=== PATIENT | female | born 1950 | race Hispanic/Latino ===

== ENCOUNTER 2019-08-07 05:54 | Inpatient (IN) | payer OTHER ==
[2019-08-04 15:01] LABS: BASOPHILS % (AUTO) 0.6 % (0.0-5.0); EOSINOPHILS % (AUTO) 4.4 % (0.0-8.0); HEMATOCRIT 37.6 % (36-48); LYMPHOCYTES % (AUTO) 26.7 % (21.0-51.0); MEAN CORPUSCULAR HEMOGLOBIN 30.1 pg (27.0-33.0); MEAN CORPUSCULAR HGB CONC 33.6 g/dL (32.0-36.0); MEAN CORPUSCULAR VOLUME 89.4 fL (79-99); MONOCYTES % (AUTO) 4.9 % (3.0-13.0); NEUTROPHILS % (AUTO) 63.4 % (40.0-77.0); PLATELET COUNT (AUTO) 234 K/uL (130-400); RED CELL DISTRIBUTION WIDTH 13.9 % (11.0-15.5); WHITE BLOOD COUNT (AUTO) 7.9 K/uL (4.8-10.8)
[2019-08-04 15:03] LABS: APPEARANCE,URINE Cloudy (CLEAR); BILIRUBIN,URINE Negative (NEGATIVE); COLOR,URINE Yellow (YELLOW); GLUCOSE, URINE (UA) TRACE mg/dL (NEGATIVE); KETONES,URINE Negative (NEGATIVE); LEUKOCYTE ESTERASE ,URINE Negative (NEGATIVE); NITRATE,URINE Positive (NEGATIVE); OCCULT BLOOD,URINE Negative (NEGATIVE); PROTEIN,URINE POS 1+ mg/dL (NEGATIVE)
[2019-08-04 15:06] VITALS: BP 160/70
[2019-08-04 15:20] LABS: INR 0.95 (0.85-1.15); PARTIAL THROMBOPLASTIN TIME 29.6 SEC (26.3-35.5)
[2019-08-04 15:55] LABS: BACTERIA,URINE Many /HPF (None Seen); MUCUS,URINE Moderate LPF (None Seen)
[2019-08-04 16:49] LABS: CREATININE 0.8 mg/dL (0.5-1.5); POTASSIUM 4.2 mmol/L (3.5-5.1)
--- NOTE | 2019-08-04 16:59 | NUR ---
UA INFORMED JUDIT MURCIA OF ABNORMAL UA. NO ORDERS RECEIVED. PROCEED WITH PLANNED PROCEDURE.
[2019-08-07] VITALS (13 sets, daily range): BP systolic 129–156; BP diastolic 52–77
[~2019-08-07] VITALS: Ht 152.4 cm; Wt 80.4 kg
[~2019-08-07 05:54] MED LIST: ASPI-555 PO; DULA0.75 SQ; INSLAN SQ; LEVO75TA10 PO; LOSA100T58 PO; MIRA25TA PO; PARO10TA71 PO; ROSU40TA21 PO; SODIUM CHLORIDE 0.9% 500ML 500 ML IV SCH; TRAM50TA4 PO
--- NOTE | 2019-08-07 06:45 | NUR ---
PATIENT ARRIVED PATIENT ARRIVED TO DAY PATIENT ACCOMPANIED BY BROTHER (MACARIO). PT AAOX3, RESPIRATIONS UNLABORED, VITAL SIGNS STABLE. DENIES ANY PAIN AT THIS TIME. PROCEDURE VERIFIED AND CONFIRMED WITH PATIENT. HOSPITAL ROUTINE EXPLAINED TO PATIENT AND PATIENT'S BOTHER, BOTH VERBALIZED UNDERSTANDING. ALL QUESTIONS/CONCERNS ADDRESSED. SIDERAILS UPX2, BED IN LOWEST POSITION, CALL RIDDLE IN REACH.
[2019-08-07] MEDS ORDERED: BIVALIRUDIN 250 MG/VIAL IV ONE (07:36)
[2019-08-07] MEDS ORDERED: IOHEXOL-350 50ML VIAL IV ONE (07:36)
[2019-08-07] MEDS ORDERED: IOHEXOL 350 MG/ML 100ML INFUS..BTL IV ONE (07:36)
[2019-08-07] MEDS ORDERED: LIDOCAINE HCL 2% 20ML ONE (07:37)
[2019-08-07] MEDS ORDERED: FENTANYL CITRATE PF 50 MCG/1 ML 2ML VIAL ONE (07:37)
[2019-08-07] MEDS ORDERED: MIDAZOLAM HCL 1 MG/ML 2ML VIAL ONE (07:37)
[2019-08-07] MEDS ORDERED: SODIUM CHLORIDE 0.9% 1000ML 1,000 ML IV ONE (07:37)
[2019-08-07] MEDS ORDERED: NITROGLYCERIN 5 MG/ML 10 ML VIAL IV ONE (07:38)
--- NOTE | 2019-08-07 07:40 | NUR ---
PATIENT TRANSFERRED PATIENT TAKEN TO PULPER TENDER VIA BED BY WERNER YANEZ AND WERNER TONG. PATIENT'S BROTHER INSTRUCTED TO WAIT IN ROOM SO THAT HE CAN SPEAK WITH DR SHELTON AFTER PROCEDURE IS COMPLETE.
[2019-08-07] MEDS ORDERED: LABETALOL 20 MG/4 ML DISP.SYRIN IV ONE (08:32)
[2019-08-07] MEDS ORDERED: LABETALOL HCL 5 MG/ML 20ML VIAL IV ONE (08:50)
[2019-08-07] MEDS ORDERED: SODIUM CHLORIDE 0.9% 1000ML 1,000 ML IV SCH (08:56)
[2019-08-07] MEDS ORDERED: GLUCAGON 1MG KIT 1 MG ML IM PRN (09:00)
[2019-08-07] MEDS: LOSARTAN 50 MG TABLET PO SCH (09:00)
[2019-08-07] MEDS: METOPROLOL TARTRATE 25 MG TAB PO SCH ×2 (09:00→21:46)
[2019-08-07] MEDS: ASPIRIN 81MG TAB.CHEW PO SCH (09:00)
[2019-08-07] MEDS ORDERED: DEXTROSE 50%-WATER 50 ML DISP.SYRIN IV PRN (09:00)
--- NOTE | 2019-08-07 09:20 | NUR ---
PATIENT RETURNED PATIENT BROUGHT BACK FROM ASSISTANT CONSTRUCTION SUPERINTENDENT VIA BED BY WERNER YANEZ AND WERNER MEZA. PATIENT AAOX3, RESPIRATIONS UNLABORED, VITAL SIGNS STABLE. PATIENT DENIES ANY PAIN AT THIS TIME. PATIENT INSTRUCTED TO LAY FLAT FOR THE NEXT 2 HOURS AND NOT TO MOVE HER RIGHT LEG, PATIENT VERBALIZED UNDERSTANDING. DRESSING TO RIGHT GROIN IS DRY AND INTACT AND AREA IS SOFT AND NONTENDER. NO BLEEDING OR DRAINING FROM DRESSING.
--- NOTE | 2019-08-07 09:30 | NUR ---
LOSARTAN/ASPIRIN LOSARTAN AND ASPIRIN NOT GIVEN BY NURSE BECAUSE PATIENT TOOK THOSE MEDS THIS MORNING AT HOME BEFORE ARRIVING TO DAY PATIENT.
[2019-08-07] MEDS ORDERED: HYDRALAZINE HCL 20 MG/ML VIAL IV PRN (11:15)
[2019-08-07] MEDS: INSULIN HUMULIN R 100 UNIT/ML 3ML SQ SCH ×3 (11:36→21:00)
[2019-08-07] MEDS ORDERED: ACETAMINOPHEN 325 MG TAB ONE (11:42)
[2019-08-07] MEDS ORDERED: ACETAMINOPHEN 325 MG TAB PO SCH (11:45)
[2019-08-07] MEDS ORDERED: CEFAZOLIN SODIUM 1 GM VIAL IVP PRN (12:45)
--- NOTE | 2019-08-07 14:30 | NUR ---
HANDOFF COMMUNICATION HANDOFF REPORT GIVEN USING SBAR TO FUAD ONEILL RN USING SBAR
[2019-08-07] MEDS: NITROGLYCERIN 1GM/1 INCH PACKET TD SCH ×3 (14:33→21:49)
--- NOTE | 2019-08-07 17:39 | NUR ---
REPORT GIVEN TO TODD JOHN RN AND PT. MEDICATION METOPROLOL TABLET GIVEN TO RN. PT TSF TO RM 226 VIA WHEELCHAIR NO COMPLICATION UPON TSF. DRESSING DRY AND INTACT AND PULSES PRESENT TO BILAT LOWER EXT.
--- NOTE | 2019-08-07 17:42 | NUR ---
ARRIVAL TO FLOOR VIA WC FROM DAYPATIENT. PT IS AAOX3 DENIES CP DENIES SOB DENIES NV NO COMPLAINTS. RIGHT GROIN SOFT, DSTAT IN PLACE. FAMILY IS AT BEDSIDE, CALL LIGHT WITHIN REACH.
[2019-08-07] MEDS: TRAMADOL HCL 50 MG TABLET PO SCH (21:00)
[2019-08-07] MEDS ORDERED: METOPROLOL TARTRATE 25 MG TAB ONE (21:43)
[2019-08-07] MEDS ORDERED: NITROGLYCERIN 1GM/1 INCH PACKET TD ONE (21:44)
[2019-08-07] MEDS: ATORVASTATIN CALCIUM 40 MG TABLET PO SCH (21:46)
[2019-08-07 22:09] LABS: HEMATOCRIT 36.4 % (36-48); MEAN CORPUSCULAR HEMOGLOBIN 30.6 pg (27.0-33.0); MEAN CORPUSCULAR HGB CONC 34.4 g/dL (32.0-36.0); PLATELET COUNT (AUTO) 224 K/uL (130-400); RED BLOOD CELL COUNT(AUTO) 4.09 MIL/uL (4.00-5.50); RED CELL DISTRIBUTION WIDTH 13.8 % (11.0-15.5); WHITE BLOOD COUNT (AUTO) 11.7 K/uL (4.8-10.8)
[2019-08-07 22:19] LABS: INR 0.99 (0.85-1.15); PROTHROMBIN TIME 10.4 SEC (9.6-11.6)
[2019-08-07 22:23] LABS: CREATININE 0.8 mg/dL (0.5-1.5); POTASSIUM 3.7 mmol/L (3.5-5.1)
[2019-08-07 22:30] LABS: B-TYPE NATRIURETIC PEPTIDE 113 pg/mL (0-100)
[2019-08-07 22:31] LABS: HEMOGLOBIN A1C 9.1 % (4.0-6.0)
[2019-08-08] VITALS (15 sets, daily range): BP systolic 106–194; BP diastolic 46–81
[2019-08-08] MEDS ORDERED: NITROGLYCERIN 1GM/1 INCH PACKET TD ONE (03:38)
[2019-08-08] MEDS: NITROGLYCERIN 1GM/1 INCH PACKET TD SCH ×2 (03:44→11:07)
[2019-08-08] MEDS: LEVOTHYROXINE 75 MCG TABLET PO SCH (05:48)
[2019-08-08] MEDS: INSULIN HUMULIN R 100 UNIT/ML 3ML SQ SCH ×2 (06:56→11:08)
--- NOTE | 2019-08-08 08:00 | NUR ---
ASSESSMENT PT IS AAOX4 DENIES CP DENIES SOB DENIES NV. NO COMPLAINTS AT THIS TIME. NPO STATUS FOR CABG TODAY. CONSENT PENDING TO BE SIGNED DR GRIGGS PENDING TO SEE PATIENT.
[2019-08-08] MEDS: PAROXETINE HCL 20 MG TABLET PO SCH (08:02)
[2019-08-08] MEDS: TRAMADOL HCL 50 MG TABLET PO SCH (08:02)
[2019-08-08] MEDS: LOSARTAN 50 MG TABLET PO SCH (08:02)
[2019-08-08] MEDS: ASPIRIN 81MG TAB.CHEW PO SCH (08:02)
[2019-08-08] MEDS: MIRABEGRON 25 MG PO SCH (08:02)
[2019-08-08] MEDS: METOPROLOL TARTRATE 25 MG TAB PO SCH (08:05)
[2019-08-08] MEDS ORDERED: EPINEPHRINE 1 MG/ML 30ML VIAL IJ ONE (08:41)
[2019-08-08] MEDS ORDERED: NITROGLYCERIN 50 MG/D5% WATER 1 BOT ONE (08:41)
--- NOTE | 2019-08-08 10:00 | NUR ---
2D ECHO AT BEDSIDE
[2019-08-08] MEDS ORDERED: EPINEPHRINE 1 MG/ML AMPULE ONE (11:08)
[2019-08-08] MEDS ORDERED: PROTAMINE SULFATE 10 MG/ML 25ML VIAL IV ONE (11:08)
[2019-08-08] MEDS ORDERED: HEPARIN SODIUM 1000UNIT/ML 10ML VIAL ONE (11:08)
[2019-08-08] MEDS ORDERED: LIDOCAINE PF 2% 5ML ABBOJECT ONE (11:08)
[2019-08-08] MEDS ORDERED: AMINOCAPROIC ACID 250 MG/ML 20 ML VIAL IV ONE (11:08)
[2019-08-08] MEDS ORDERED: ESMOLOL HCL 10 MG/ML 10 ML VIAL ONE (11:08)
[2019-08-08] MEDS ORDERED: SODIUM BICARB 50MEQ 50ML VIAL ONE (11:08)
[2019-08-08] MEDS ORDERED: NOREPINEPHRINE BITARTRATE 1 MG/1 ML ML IV ONE (11:08)
[2019-08-08] MEDS ORDERED: PROPOFOL 10 MG/ML 20ML VIAL IV ONE (11:09)
[2019-08-08] MEDS ORDERED: MIDAZOLAM HCL 1 MG/ML 2ML VIAL ONE (11:09)
[2019-08-08] MEDS ORDERED: ROCURONIUM 10MG/1ML SYR 10 MG/ML ML ONE (11:09)
[2019-08-08] MEDS ORDERED: FENTANYL CITRATE PF 50 MCG/1 ML 20ML VIAL IJ ONE (11:09)
--- NOTE | 2019-08-08 12:00 | NUR ---
DR FOSTER ROUNDED SAW PATIENT. PENDING DR GRIGGS TO SEE PATIENT.
--- NOTE | 2019-08-08 12:03 | NUR ---
DC PLAN VISITED WITH PATIENT. PATIENT LIVES WITH SPOUSE. INDEPENDENT ABLE TO PERFORM ADL'S. PATIENT HAS NO DME'S. PROVIDER 3 HRS. FEELS SAFE TO RETURN HOME. Addendum: 08/08/19 at 1203 by LANA RUSSELL RN CM Amended: Links added.
[2019-08-08] MEDS ORDERED: BACITRACIN 50,000 UNIT VIAL ONE (13:42)
[2019-08-08] MEDS ORDERED: PAPAVERINE HCL 30 MG/ML 2ML VIAL ONE (13:42)
--- NOTE | 2019-08-08 14:29 | NUR ---
OR STAFF PICKED UP PATIENT MADE AWARE OF CONSENT PENDING TO BE SIGNED, DR GRIGGS TO SEE PATIENT DOWNSTAIRS IN OR HOLDING. TELE PACK REMOVED. ALL BELONGINGS TAKEN OUT OF ROOM AND GIVEN TO FAMILY.
[2019-08-08] MEDS ORDERED: CEFAZOLIN SODIUM 1 GM VIAL ONE (14:47)
[2019-08-08] MEDS ORDERED: SODIUM CHLORIDE 0.9% 1000ML 1,000 ML IV ONE (15:14)
[2019-08-08 15:45] LABS: ABG BASE EXCESS 0.4 mmol/L (-2.0-3.0); ABG OXYGEN SATURATION 98.8 % (95.0-99.0); ABG PCO2 27 mmHg (32-45)
[2019-08-08] MEDS ORDERED: SODIUM CHLORIDE 0.9% 500ML 500 ML IV SCH (16:33)
[2019-08-08] MEDS ORDERED: NOREPINEPHRINE 4MG/NS 250ML 250 ML IV PRN (16:45)
[2019-08-08] MEDS ORDERED: ALBUMIN (HUMAN) 5% 250 ML IV PRN (16:45)
[2019-08-08] MEDS ORDERED: CALCIUM GLUCONATE 1 GM in SODIUM CHLORIDE 0.9% 50 ML IV PRN (16:45)
[2019-08-08] MEDS ORDERED: MORPHINE SULFATE 2 MG/ML 1ML SYG IV PRN (16:45)
[2019-08-08] MEDS ORDERED: SODIUM CHLORIDE 0.9% 1000ML 1,000 ML IV SCH (16:45)
[2019-08-08] MEDS ORDERED: DEXTROSE 50%-WATER 50 ML DISP.SYRIN IV PRN (16:45)
[2019-08-08] MEDS ORDERED: GLUCAGON 1MG KIT 1 MG ML IM PRN (16:45)
[2019-08-08] MEDS ORDERED: AMINOCAPROIC ACID 15,000 MG in SODIUM CHLORIDE 0.9% 250 ML IV SCH (16:45)
[2019-08-08] MEDS ORDERED: NITROGLYCERIN 50 MG/D5% WATER 250 BOT IV SCH (16:45)
[2019-08-08] MEDS ORDERED: EPINEPHRINE 8 MG in DEXTROSE 5%-WATER 250 ML IV PRN (16:45)
[2019-08-08] MEDS ORDERED: ACETAMINOPHEN 325 MG TAB PO PRN ×2 (16:45)
[2019-08-08] MEDS ORDERED: SODIUM CHLORIDE 0.9% 10 ML VIAL IVP PRN (16:45)
[2019-08-08] MEDS ORDERED: MAGNESIUM 2GM PREMIX 50ML 50 ML IV PRN (16:45)
[2019-08-08] MEDS ORDERED: ONDANSETRON HCL 4 MG/2 ML VIAL IV PRN (16:45)
[2019-08-08] MEDS ORDERED: ACETAMINOPHEN 650 MG SUPPOSITORY RC PRN (16:45)
[2019-08-08] MEDS ORDERED: PROPOFOL 1000 MG/100 ML 100 ML IV PRN (16:45)
[2019-08-08] MEDS ORDERED: SODIUM CHLORIDE 0.9% 250 ML IV PRN (16:45)
[2019-08-08] MEDS ORDERED: INSULIN REGULAR, HUMAN 3ML 100 UNIT in SODIUM CHLORIDE 0.9% 99 ML IV SCH ×2 (16:45)
[2019-08-08] MEDS ORDERED: POTASSIUM PHOS 15 mMOL+NS250ML 250 ML IV PRN (16:45)
[2019-08-08] MEDS ORDERED: TRAMADOL HCL 50 MG TABLET PO PRN (16:45)
[2019-08-08 17:15] LABS: ABG BASE EXCESS -2.7 mmol/L (-2.0-3.0); ABG HCO3 20.9 mmol/L (21.0-28.0); ABG OXYGEN SATURATION 98.8 % (95.0-99.0); ABG PCO2 33 mmHg (32-45)
--- NOTE | 2019-08-08 17:38 | NUR ---
PT WAS ADMITTED TO ROOM 213 POST CABG X2. PT HAS BEEN CONNECTED TO VENTILATOR PRESCRIBED. SEE ASSESSMEMENT.
[2019-08-08 18:20] LABS: ABG HCO3 22.4 mmol/L (21.0-28.0); ABG OXYGEN SATURATION 98.2 % (95.0-99.0); ABG PCO2 33 mmHg (32-45)
--- NOTE | 2019-08-08 18:25 | NUR ---
PT WAS STARTED ON TRIDIL DRIP AT 10 MCG AFTER B/P INCREASED AND SUSTAINED GREATER THAN 180'S. LEVOPHED HAS BEEN OFF SINCE ADMISSION TO CVR POST CABG X 2.
--- NOTE | 2019-08-08 19:00 | NUR ---
REPORT GIVEN TO DUGLAS SAMUELS RN.
[2019-08-08 19:09] LABS: HEMATOCRIT 31.7 % (36-48); MEAN CORPUSCULAR HEMOGLOBIN 30.3 pg (27.0-33.0); MEAN CORPUSCULAR HGB CONC 34.2 g/dL (32.0-36.0); MEAN CORPUSCULAR VOLUME 88.8 fL (79-99); PLATELET COUNT (AUTO) 200 K/uL (130-400); RED BLOOD CELL COUNT(AUTO) 3.57 MIL/uL (4.00-5.50); WHITE BLOOD COUNT (AUTO) 19.4 K/uL (4.8-10.8)
[2019-08-08 19:24] LABS: ABG BASE EXCESS -1.1 mmol/L (-2.0-3.0); ABG HCO3 22.6 mmol/L (21.0-28.0); ABG PCO2 34 mmHg (32-45)
[2019-08-08] MEDS: MORPHINE SULFATE 4 MG/1ML SYG IV PRN ×2 (19:37→21:08)
[2019-08-08] MEDS: POTASSIUM CHLORIDE 20MEQ/100ML 100 ML IV PRN ×2 (19:38→20:34)
[2019-08-08 19:39] LABS: CREATININE 0.6 mg/dL (0.5-1.5); MAGNESIUM 1.6 mg/dL (1.80-2.40); PHOSPHORUS 2.6 mg/dL (2.5-4.9); POTASSIUM 3.6 mmol/L (3.5-5.1)
[2019-08-08] MEDS: SODIUM BICARB 50MEQ 50ML VIAL IV PRN (19:55)
[2019-08-08 19:56] LABS: INR 1.06 (0.85-1.15); PARTIAL THROMBOPLASTIN TIME 27.8 SEC (26.3-35.5); PROTHROMBIN TIME 11.1 SEC (9.6-11.6)
[2019-08-08] MEDS: FAMOTIDINE/PF 20 MG/2 ML VIAL IV SCH (20:24)
[2019-08-08] MEDS: ATORVASTATIN CALCIUM 40 MG TABLET PO SCH (20:27)
[2019-08-08 21:18] LABS: ABG HCO3 25.4 mmol/L (21.0-28.0); ABG OXYGEN SATURATION 97.5 % (95.0-99.0); ABG PCO2 40 mmHg (32-45)
[2019-08-08] MEDS: CEFAZOLIN SODIUM 1 GM VIAL IV SCH (21:31)
[2019-08-09] VITALS (28 sets, daily range): BP systolic 92–155; BP diastolic 38–75
[2019-08-09 02:11] LABS: ABG BASE EXCESS 0.8 mmol/L (-2.0-3.0); ABG HCO3 24.9 mmol/L (21.0-28.0); ABG OXYGEN SATURATION 97.3 % (95.0-99.0); ABG PCO2 38 mmHg (32-45)
[2019-08-09 03:06] LABS: ABG BASE EXCESS -1.3 mmol/L (-2.0-3.0); ABG HCO3 23.4 mmol/L (21.0-28.0); ABG OXYGEN SATURATION 97.4 % (95.0-99.0); ABG PCO2 39 mmHg (32-45)
[2019-08-09] MEDS: SODIUM BICARB 50MEQ 50ML VIAL IV PRN (03:10)
[2019-08-09 04:12] LABS: HEMATOCRIT 32.1 % (36-48); MEAN CORPUSCULAR HEMOGLOBIN 30.5 pg (27.0-33.0); MEAN CORPUSCULAR HGB CONC 34.1 g/dL (32.0-36.0); MEAN CORPUSCULAR VOLUME 89.4 fL (79-99); PLATELET COUNT (AUTO) 174 K/uL (130-400); RED BLOOD CELL COUNT(AUTO) 3.59 MIL/uL (4.00-5.50); RED CELL DISTRIBUTION WIDTH 14.2 % (11.0-15.5); WHITE BLOOD COUNT (AUTO) 13.6 K/uL (4.8-10.8)
[2019-08-09 04:24] LABS: INR 0.97 (0.85-1.15); PARTIAL THROMBOPLASTIN TIME 26.5 SEC (26.3-35.5); PROTHROMBIN TIME 10.2 SEC (9.6-11.6)
--- NOTE | 2019-08-09 04:25 | NUR ---
EXTUBATION PT TOLERATED WEANING WELL ABG WNL. PT WITH GOOD HAND RESIDENTIAL THERAPIST AND ABLE TO LIFT HEAD AND HOLD . PT WAS ABLE TO ACHIEVE NIF -44 AND VC 980. PT EXTUBATED AND PLACED ON 40% CAFM SHE WAS ALSO ENCOURAGED TO TAKE SLOW DEEP BREATHS.
[2019-08-09 04:26] LABS: CREATININE 0.7 mg/dL (0.5-1.5); MAGNESIUM 2.2 mg/dL (1.80-2.40); PHOSPHORUS 2.9 mg/dL (2.5-4.9); POTASSIUM 4.1 mmol/L (3.5-5.1)
[2019-08-09 05:29] LABS: ABG BASE EXCESS 1.6 mmol/L (-2.0-3.0); ABG OXYGEN SATURATION 94.6 % (95.0-99.0); ABG PCO2 45 mmHg (32-45)
[2019-08-09] MEDS: CEFAZOLIN SODIUM 1 GM VIAL IV SCH ×2 (05:32→15:23)
--- NOTE | 2019-08-09 06:10 | NUR ---
TRANSFER PT TRANSFERRED AT THIS TIME TO ROOM 218 VIA BED. NO ADVERSE REACTIONS NOTED PT SAFETY MAINTAINED. WILL CONTINUE TO MONITOR.
[2019-08-09] MEDS: LEVOTHYROXINE 75 MCG TABLET PO SCH (06:39)
[2019-08-09] MEDS: FAMOTIDINE/PF 20 MG/2 ML VIAL IV SCH (08:51)
[2019-08-09] MEDS: TRAMADOL HCL 50 MG TABLET PO PRN ×3 (08:52→21:05)
[2019-08-09] MEDS: PAROXETINE HCL 20 MG TABLET PO SCH (08:53)
[2019-08-09] MEDS: ASPIRIN 325MG EC TAB 325 MG TABLET.DR PO SCH (08:53)
[2019-08-09] MEDS: FUROSEMIDE 10 MG/ML 2ML VIAL IV SCH ×2 (08:55→20:49)
[2019-08-09] MEDS: MIRABEGRON 25 MG PO SCH (08:57)
--- NOTE | 2019-08-09 14:15 | NUR ---
PT WAS SAT UP TO CHAIR EARLIER AND TRIDIL DRIP HAS BEEN OFF FOR 6 HOURS. SBP HAS REMAINED STABLE.
[2019-08-09] MEDS: ATORVASTATIN CALCIUM 40 MG TABLET PO SCH (20:49)
[2019-08-09] MEDS: FAMOTIDINE 20MG TAB 20 MG TAB PO SCH (20:49)
--- NOTE | 2019-08-09 21:10 | NUR ---
STATUS PATIENT TRANSFERRED FROM CHAIR TO BED WITH ASSIST X2. TOLERATED ACTIVITY WELL. PATIENT MEDICATED FOR PAIN
[2019-08-09] MEDS ORDERED: AMIODARONE HCL 150 MG in DEXTROSE 5%-WATER 100 ML IV SCH (22:15)
[2019-08-09] MEDS ORDERED: AMIODARONE HCL 900 MG in DEXTROSE 5%-WATER 500 ML IV SCH (22:15)
[2019-08-09] MEDS ORDERED: NOREPINEPHRINE BITARTRATE 1 MG/1 ML ML IV ONE (22:17)
--- NOTE | 2019-08-09 22:30 | NUR ---
RHYTHM 8 PATIENT IN AFIB RVR. 2200 DR GRIGGS NOTIFIED ORDERS RECEIVED FOR AMIODARONE PROTOCOL. AMIODARONE PROTOCOL INITIATED. 2226 PATIENT CONVERTED TO SINUS RHYTHM. MAINTENANCE INFUSION RUNNING
[2019-08-10] VITALS (21 sets, daily range): BP systolic 90–131; BP diastolic 37–82
[2019-08-10 04:44] LABS: HEMATOCRIT 28.3 % (36-48); MEAN CORPUSCULAR HEMOGLOBIN 30.3 pg (27.0-33.0); MEAN CORPUSCULAR VOLUME 89.2 fL (79-99); PLATELET COUNT (AUTO) 172 K/uL (130-400); RED BLOOD CELL COUNT(AUTO) 3.17 MIL/uL (4.00-5.50); RED CELL DISTRIBUTION WIDTH 13.9 % (11.0-15.5); WHITE BLOOD COUNT (AUTO) 14.1 K/uL (4.8-10.8)
[2019-08-10 04:50] LABS: CREATININE 0.8 mg/dL (0.5-1.5); POTASSIUM 3.3 mmol/L (3.5-5.1)
[2019-08-10] MEDS: POTASSIUM CHLORIDE 20MEQ/100ML 100 ML IV PRN ×2 (05:27→08:31)
[2019-08-10] MEDS: LEVOTHYROXINE 75 MCG TABLET PO SCH (06:07)
[2019-08-10] MEDS: TRAMADOL HCL 50 MG TABLET PO PRN ×3 (06:12→18:40)
[2019-08-10] MEDS: MIRABEGRON 25 MG PO SCH (08:24)
[2019-08-10] MEDS: FUROSEMIDE 20 MG TABLET PO SCH ×2 (08:30→16:14)
[2019-08-10] MEDS: FAMOTIDINE 20MG TAB 20 MG TAB PO SCH ×2 (08:31→20:44)
[2019-08-10] MEDS: PAROXETINE HCL 20 MG TABLET PO SCH (08:31)
[2019-08-10] MEDS: ASPIRIN 325MG EC TAB 325 MG TABLET.DR PO SCH (08:31)
[2019-08-10] MEDS: METOPROLOL TARTRATE 25 MG TAB PO SCH ×2 (08:31→20:47)
[2019-08-10] MEDS: INSULIN HUMULIN R 100 UNIT/ML 3ML SQ SCH ×3 (11:30→21:00)
--- NOTE | 2019-08-10 16:45 | NUR ---
RECEIVED TRANSFER TO ROOM 226 VIA RECLINER. DENIES ANY C/O AT THIS TIME. CHEST TUBES IN PLACE TO SUCTION. AMIODARONE GTT INFUSING AT 0.5MG/MIN VIA IV PUMP. CALL LIGHT WITHIN REACH, VERBALIZED ABILITY TO USE. ROOM DOOR OPEN, VISIBLE FROM NURSE'S STATION.
[2019-08-10] MEDS: ATORVASTATIN CALCIUM 40 MG TABLET PO SCH (20:44)
[2019-08-10] MEDS: AMIODARONE HCL 200 MG TABLET PO SCH (20:44)
[2019-08-11 03:00] VITALS: BP 97/49
[2019-08-11 03:43] LABS: HEMATOCRIT 27.8 % (36-48); MEAN CORPUSCULAR HEMOGLOBIN 30.9 pg (27.0-33.0); MEAN CORPUSCULAR HGB CONC 34.2 g/dL (32.0-36.0); MEAN CORPUSCULAR VOLUME 90.2 fL (79-99); PLATELET COUNT (AUTO) 173 K/uL (130-400); RED BLOOD CELL COUNT(AUTO) 3.08 MIL/uL (4.00-5.50); RED CELL DISTRIBUTION WIDTH 13.9 % (11.0-15.5); WHITE BLOOD COUNT (AUTO) 13.1 K/uL (4.8-10.8)
[2019-08-11 04:02] LABS: CREATININE 0.9 mg/dL (0.5-1.5); POTASSIUM 4.1 mmol/L (3.5-5.1)
[2019-08-11 05:30] LABS: APPEARANCE,URINE Clear (CLEAR); BILIRUBIN,URINE Negative (NEGATIVE); COLOR,URINE Yellow (YELLOW); GLUCOSE, URINE (UA) Negative (NEGATIVE); KETONES,URINE 15 mg/dL (NEGATIVE); LEUKOCYTE ESTERASE ,URINE Trace (NEGATIVE); NITRATE,URINE Negative (NEGATIVE); OCCULT BLOOD,URINE Negative (NEGATIVE); PH,URINE 5.5 (5.0-8.0); PROTEIN,URINE POS 1+ mg/dL (NEGATIVE)
[2019-08-11 05:42] LABS: BACTERIA,URINE None Seen /HPF (None Seen); MUCUS,URINE Rare LPF (None Seen); RBC,URINE None Seen /HPF (0-1); SQUAMOUS EPITHELIAL CELL,UR Few /HPF (0-2); YEAST,URINE BUDDING Rare /HPF (None Seen)
[2019-08-11] MEDS: INSULIN HUMULIN R 100 UNIT/ML 3ML SQ SCH ×4 (06:36→21:52)
[2019-08-11] MEDS: LEVOTHYROXINE 75 MCG TABLET PO SCH (06:36)
[2019-08-11 07:00] VITALS: BP 107/58
[2019-08-11] MEDS: MIRABEGRON 25 MG PO SCH (09:00)
[2019-08-11] MEDS: AMIODARONE HCL 200 MG TABLET PO SCH ×2 (09:44→20:42)
[2019-08-11] MEDS: PAROXETINE HCL 20 MG TABLET PO SCH (09:44)
[2019-08-11] MEDS: FAMOTIDINE 20MG TAB 20 MG TAB PO SCH ×2 (09:44→20:42)
[2019-08-11] MEDS: ASPIRIN 325MG EC TAB 325 MG TABLET.DR PO SCH (09:44)
[2019-08-11] MEDS: FUROSEMIDE 20 MG TABLET PO SCH ×2 (09:47→17:16)
[2019-08-11] MEDS: METOPROLOL TARTRATE 25 MG TAB PO SCH ×2 (09:47→20:43)
[2019-08-11] MEDS: ENOXAPARIN SODIUM 30 MG/0.3 ML SQ SCH (09:47)
[2019-08-11 11:00] VITALS: BP 123/44
[2019-08-11] MEDS: TRAMADOL HCL 50 MG TABLET PO PRN (14:51)
[2019-08-11 16:00] VITALS: BP 120/54
[2019-08-11 20:00] VITALS: BP 119/45
[2019-08-11] MEDS: ATORVASTATIN CALCIUM 40 MG TABLET PO SCH (20:43)
[2019-08-11 23:18] VITALS: BP 96/45
[2019-08-12 03:37] VITALS: BP 114/48
[2019-08-12 03:57] LABS: MEAN CORPUSCULAR HEMOGLOBIN 30.5 pg (27.0-33.0); MEAN CORPUSCULAR HGB CONC 34.1 g/dL (32.0-36.0); MEAN CORPUSCULAR VOLUME 89.3 fL (79-99); PLATELET COUNT (AUTO) 228 K/uL (130-400); RED BLOOD CELL COUNT(AUTO) 3.13 MIL/uL (4.00-5.50); RED CELL DISTRIBUTION WIDTH 13.7 % (11.0-15.5); WHITE BLOOD COUNT (AUTO) 11.2 K/uL (4.8-10.8)
[2019-08-12 04:11] LABS: CREATININE 0.9 mg/dL (0.5-1.5); PHOSPHORUS 2.4 mg/dL (2.5-4.9); POTASSIUM 3.9 mmol/L (3.5-5.1)
[2019-08-12] MEDS: LEVOTHYROXINE 75 MCG TABLET PO SCH (06:18)
[2019-08-12] MEDS: INSULIN HUMULIN R 100 UNIT/ML 3ML SQ SCH ×4 (06:20→20:50)
[2019-08-12 07:45] VITALS: BP 123/55
[2019-08-12] MEDS: MIRABEGRON 25 MG PO SCH (09:00)
[2019-08-12] MEDS: AMIODARONE HCL 200 MG TABLET PO SCH ×2 (09:35→20:33)
[2019-08-12] MEDS: ASPIRIN 325MG EC TAB 325 MG TABLET.DR PO SCH (09:35)
[2019-08-12] MEDS: METOPROLOL TARTRATE 25 MG TAB PO SCH ×2 (09:35→20:33)
[2019-08-12] MEDS: POTASSIUM CHLORIDE 20MEQ/100ML 100 ML IV PRN (09:35)
[2019-08-12] MEDS: FUROSEMIDE 20 MG TABLET PO SCH ×2 (09:35→17:28)
[2019-08-12] MEDS: ENOXAPARIN SODIUM 30 MG/0.3 ML SQ SCH (09:36)
[2019-08-12] MEDS: PAROXETINE HCL 20 MG TABLET PO SCH (09:36)
[2019-08-12] MEDS: FAMOTIDINE 20MG TAB 20 MG TAB PO SCH ×2 (09:36→20:33)
[2019-08-12 11:30] VITALS: BP 131/59
[2019-08-12 15:00] VITALS: BP 148/64
[2019-08-12 19:14] VITALS: BP 123/51
[2019-08-12] MEDS: ATORVASTATIN CALCIUM 40 MG TABLET PO SCH (20:33)
[2019-08-12 23:13] VITALS: BP 120/45
--- NOTE | 2019-08-13 02:03 | NUR ---
PATIENT ASSISSTED TO RR NO COMPLAINTS VSS,DENIES PAIN 4 PS ADDRESSED
[2019-08-13 03:54] VITALS: BP 112/55
[2019-08-13] MEDS: LEVOTHYROXINE 75 MCG TABLET PO SCH (05:47)
[2019-08-13] MEDS: INSULIN HUMULIN R 100 UNIT/ML 3ML SQ SCH ×2 (05:49→11:52)
[2019-08-13 07:20] VITALS: BP 115/62
[2019-08-13] MEDS: MIRABEGRON 25 MG PO SCH (09:00)
[2019-08-13] MEDS: PAROXETINE HCL 20 MG TABLET PO SCH (09:12)
[2019-08-13] MEDS: AMIODARONE HCL 200 MG TABLET PO SCH (09:12)
[2019-08-13] MEDS: FAMOTIDINE 20MG TAB 20 MG TAB PO SCH (09:12)
[2019-08-13] MEDS: ASPIRIN 325MG EC TAB 325 MG TABLET.DR PO SCH (09:12)
[2019-08-13] MEDS: METOPROLOL TARTRATE 25 MG TAB PO SCH (09:12)
[2019-08-13] MEDS: FUROSEMIDE 20 MG TABLET PO SCH (09:12)
[2019-08-13] MEDS: ENOXAPARIN SODIUM 30 MG/0.3 ML SQ SCH (09:16)
[2019-08-13 11:30] VITALS: BP 121/55
[2019-08-13 15:00] VITALS: BP 145/61
--- NOTE | 2019-08-13 15:28 | NUR ---
D/C PLAN F/U cm spoke to pt regarding d/c planning. CM explained hospitalist recommendations for SNF placement. Pt is declining placement at this time. States spouse and provider can assist in care. Feels safe to return home and has reliable transportation to appointments. No needs verbalized. Plan to home. Addendum: 08/13/19 at 1531 by ZARA WARREN CM Amended: Links added.
== END 2019-08-13 17:48 | disposition home or self-care (01) | DRG 233 ==
LOC: DAH 05:54 → 2DH 08:56 → DAH 17:39 → 2CV 08-08 17:09 → 2CH 08-09 06:08 → 2BH 08-09 14:45 → 2DH 08-10 16:04
PROVIDERS: ADMIT Internal Medicine; ATTEND Internal Medicine
PROC: B2111ZZ Fluoroscopy of Multiple Coronary Arteries using Low Osmolar Contrast (ICD-10-PCS; principal; 2019-08-07)
PROC: B2151ZZ Fluoroscopy of Left Heart using Low Osmolar Contrast (ICD-10-PCS; 2019-08-07)
PROC: 4A023N7 Measurement of Cardiac Sampling and Pressure, Left Heart, Percutaneous Approach (ICD-10-PCS; 2019-08-07)
PROC: 02100Z9 Bypass Coronary Artery, One Artery from Left Internal Mammary, Open Approach (ICD-10-PCS; 2019-08-08)
PROC: 021009W Bypass Coronary Artery, One Artery from Aorta with Autologous Venous Tissue, Open Approach (ICD-10-PCS; 2019-08-08)
PROC: 06BQ4ZZ Excision of Left Saphenous Vein, Percutaneous Endoscopic Approach (ICD-10-PCS; 2019-08-08)
DX: I25.119 Atherosclerotic heart disease of native coronary artery with unspecified angina pectoris (principal); I50.33 Acute on chronic diastolic (congestive) heart failure; I24.9 Acute ischemic heart disease, unspecified; D68.59 Other primary thrombophilia; E11.51 Type 2 diabetes mellitus with diabetic peripheral angiopathy without gangrene; E03.9 Hypothyroidism, unspecified; E11.40 Type 2 diabetes mellitus with diabetic neuropathy, unspecified; I11.0 Hypertensive heart disease with heart failure; E78.2 Mixed hyperlipidemia; F32.9 Major depressive disorder, single episode, unspecified; I48.91 Unspecified atrial fibrillation; K21.9 Gastro-esophageal reflux disease without esophagitis; Z79.82 Long term (current) use of aspirin; Z79.899 Other long term (current) drug therapy; Z82.0 Family history of epilepsy and other diseases of the nervous system; Z83.3 Family history of diabetes mellitus; Z82.5 Family history of asthma and other chronic lower respiratory diseases; Z82.49 Family history of ischemic heart disease and other diseases of the circulatory system
CPT/HCPCS: 36415; 71045; 80048; 80061; 81001; 82330; 82435; 82803; 82947; 82948; 83036; 83605; 83735; 83880; 84100; 84132; 84295; 85018; 85025; 85027; 85347; 85610; 85730; 86850; 86900; 86901; 86922; 93005; 93306; 93458; 93880; 94002; 94003; 94010; 94150; 97039; 99156; 99157; A4606; A7048; C1769; C1894; G0378; J0171; J0282; J0583; J0690; J1644; J1650; J1815; J1940; J2001; J2250; J2270; J2440; J2704; J2720; J3010; J3475; J3480; J3490; J7030; J7040; J7060; Q9967

== ENCOUNTER → 2022-10-22 | Outpatient (CLI) | payer OTHER, MEDICARE ==
[~2022-10-22] MED LIST changes: -ASPI-555 PO; +DAPA10TA PO; +DEXL30CA3 PO; -DULA0.75 SQ; -INSLAN SQ; +INSU100V37 SQ; +ISOS60TA77 PO; -LEVO75TA10 PO; +LEVO88CA4 PO; -LOSA100T58 PO; +LOSA50TA64 PO; +METO25TA6 PO; -MIRA25TA PO; +RANO500T2 PO; -SODIUM CHLORIDE 0.9% 500ML 500 ML IV SCH; -TRAM50TA4 PO
== END | disposition home or self-care (01) ==
LOC: SHCH 09:45
PROVIDERS: ATTEND Internal Medicine Cardiovascular Disease
DX: I87.2 Venous insufficiency (chronic) (peripheral) (principal); I73.9 Peripheral vascular disease, unspecified
CPT/HCPCS: 93925; 93970

== ENCOUNTER → 2024-02-03 | Outpatient (CLI) | payer OTHER, MEDICARE ==
[~2024-02-03] MED LIST changes: +IOHEXOL 350 MG/ML 100ML INFUS..BTL IV ONE; +METOPROLOL TARTRATE 1 MG/ML 5ML VIAL IV ONE
== END | disposition home or self-care (01) ==
LOC: RAH 09:49
PROVIDERS: ATTEND Internal Medicine Cardiovascular Disease
DX: I25.10 Atherosclerotic heart disease of native coronary artery without angina pectoris (principal); R07.9 Chest pain, unspecified; J44.9 Chronic obstructive pulmonary disease, unspecified; M47.815 Spondylosis without myelopathy or radiculopathy, thoracolumbar region; Z98.890 Other specified postprocedural states; Z95.1 Presence of aortocoronary bypass graft
CPT/HCPCS: 75574; J3490 ×2; Q9967

== ENCOUNTER 2025-05-16 11:08 | Day surgery (SDC) | payer OTHER, MEDICAID ==
[2025-05-11 13:04] LABS: IMMATURE GRANULOCYTE ABSOLUTE 0.04 K/uL (0-1); NUCLEATED RED BLOOD CELLS 0.0 % (0.0-0.19); PLATELET COUNT (AUTO) 241 K/uL (130-400); RED BLOOD CELL COUNT(AUTO) 4.44 MIL/uL (4.00-5.50); RED CELL DISTRIBUTION WIDTH 14.5 % (11.0-15.5); WHITE BLOOD COUNT (AUTO) 9.4 K/uL (4.8-10.8)
[2025-05-11 13:15] LABS: CREATININE 0.8 mg/dL (0.5-1.0); GLOMERULAR FILTR. RATE CALC 76.0 mL/min (>90); GLUCOSE,RANDOM 160.0 mg/dL (70-105); SODIUM SERUM 143.0 mmol/L (136-145); UREA NITROGEN, BLOOD 20.0 mg/dL (7-18)
[2025-05-11 13:18] LABS: INR 0.96 (0.85-1.15)
[2025-05-11 13:44] VITALS: BP 199/89; PULSE 74; RESP 18; TEMP 97.6
--- NOTE | 2025-05-11 14:47 | HMCIMG ---
EXAM: CR Chest, 1 View. CLINICAL HISTORY: PRE OP COMPARISON: Radiograph dated January 19, 2022 FINDINGS: LUNGS: There is no mass, infiltrate, or acute pulmonary abnormality. PLEURAL SPACES: No evidence of pleural effusion or pneumothorax. MEDIASTINUM: Prior sternotomy. The cardiomediastinal silhouette is within normal limits. BONES: No aggressive appearing osseous lesion seen. IMPRESSION: No acute cardiopulmonary pathology is evident. /[place]
--- NOTE | 2025-05-11 15:54 | EKG ---
[facility] Test Date: 2025-05-11 Test Time: 12:53:18 Pat Name: RACHANA COBOS Department: [facility] Room: Gender: F Supervisor Plastics: [id number] : [id number] Requested By: YADIRA SHELTON Order Number: [id number] Reading MD: Nenita Barone Measurements Intervals [place] Rate: 72 P: 51 SD: 244 QRS: -24 QRSD: 159 T: 156 QT: 461 QTc: 505 Interpretive Statements Sinus rhythm Prolonged SD interval Left bundle branch block ST elevation secondary to IVCD Compared to ECG 01/19/2022 11:51:39 First degree AV block now present Left bundle-branch block now present Intraventricular conduction delay now present ST (T wave) deviation now present Myocardial infarct finding no longer present Electronically Signed On 05-11-2025 16:17:39 CDT by Nenita Barone Please click the below link to view image of tracing.
[~2025-05-16] VITALS: Ht 154.9 cm; Wt 84.1 kg
[2025-05-16] VITALS (10 sets, daily range): BP systolic 134–175; BP diastolic 58–90; PULSE 64–75; RESP 12–18; TEMP 97.9–98.1
[~2025-05-16 11:08] MED LIST changes: +ASPI-1197 PO; -IOHEXOL 350 MG/ML 100ML INFUS..BTL IV ONE; -LEVO88CA4 PO; +LEVO88CA5 PO; -METOPROLOL TARTRATE 1 MG/ML 5ML VIAL IV ONE; -ROSU40TA21 PO; +ROSU40TA88 PO
[2025-05-16] MEDS ORDERED: LIDOCAINE HCL 400MG/20ML VIAL ONE (15:00)
[2025-05-16] MEDS ORDERED: HEParin-NS 1,000 UNIT/500 ML 1,000 ML IV ONE (15:00)
[2025-05-16] MEDS ORDERED: NITROGLYCERIN 50MG VIAL ONE (15:01)
[2025-05-16] MEDS ORDERED: IOHEXOL 350 MG/ML 100ML INFUS..BTL IV ONE (15:02)
[2025-05-16] MEDS ORDERED: MIDAZOLAM HCL 1 MG/ML 2ML VIAL ONE (15:14)
--- NOTE | 2025-05-16 15:55 | PRN ---
PROCEDURES: 1. Right common femoral arterial sheath placement. 2. Selective coronary angiogram. 3. Left heart catheterization. 4. Left ventriculogram. 5. Left subclavian arteriogram. 6. Selective left internal mammary artery cannulation with IM catheter and selective saphenous vein graft cannulation with JR4 catheter 7. Conscious sedation INDICATIONS: Abnormal stress test Chest pain DESCRIPTION OF PROCEDURE: The patient was electively brought to the catheterization suite and prepped and draped in sterile fashion. An IV was started, if not already in place and both groins were exposed for arterial access. A 1% lidocaine was used for local anesthesia and then a micropuncture kit was used to gain access and once free-flowing blood was seen, modified Seldinger technique was utilized to place a 6 [place] sheath into the right common femoral artery. Next, preformed JL4 and JR4 catheters were then used to selectively engage the [place] coronary vessels, a saphenous vein graft, as well as left subclavian artery. Next an exchange length 0.035 in J wire was then used to exchange out the JR4 for an IM catheter. The IM catheter then selectively engage the left internal mammary artery and contrast injections were performed. Next, a 6 [place]ian angled pigtail was used to cross the aortic valve. Measurements were obtained then a left ventriculogram was done in the 30 TORRI position. Manual pressure was held for hemostasis. At the end of the case no complications occurred. FINDINGS: The left main artery bifurcates in the LAD and left circumflex with distal left main stenosis of 75-80%. After diagonal branch 2. The LAD is occluded. The CASH-lad is noted to be patent with a 40-50% stenosis noted in the [place] LAD after anastomosis. The left circumflex artery is patent with a large saphenous vein graft anastomosed to obtuse marginal branch 3. Which is patent providing retrograde filling of distal left circumflex. The right coronary artery has luminal irregularities is calcified but no specific stenosis is present. Left subclavian artery Ca any significant stenosis. Ejection fraction is greater than 65-70% LVEDP is normal Resting wall motion is normal SUMMARY OF FINDINGS: Patent grafts x2 Left main stenosis distally of 75-80% and a 100% occlusion of mid LAD RECOMMENDATIONS: [Continue medical therapy Discharge home later today Follow up with Dr. Carpio four weeks ] YADIRA CARPIO MD May 16, 2025 15:55
[2025-05-16] MEDS ORDERED: 0.9%NACL 1000ML 1,000 ML IV SCH (16:00)
[2025-05-16] MEDS ORDERED: DEXTROSE 50%-WATER 50 ML DISP.SYRIN IV PRN (16:00)
[2025-05-16] MEDS ORDERED: NITROGLYCERIN 0.4 MG SL TAB SL PRN (16:00)
[2025-05-16] MEDS ORDERED: GLUCAGON 1MG KIT 1 MG ML IM PRN (16:00)
--- NOTE | 2025-05-16 19:44 | NUR ---
PATIENT DISCHARGED FROM FACILITY VIA WHEELCHAIR BY WERNER MARLEY AND ASSISTED INTO PRIVATE VEHICLE DRIVEN BY FAMILY
== END 2025-05-16 19:46 | disposition home or self-care (01) ==
LOC: DAH 11:08
PROVIDERS: ATTEND Internal Medicine Cardiovascular Disease
DX: R94.39 Abnormal result of other cardiovascular function study (principal); I25.110 Atherosclerotic heart disease of native coronary artery with unstable angina pectoris; I25.84 Coronary atherosclerosis due to calcified coronary lesion; I25.2 Old myocardial infarction; I44.7 Left bundle-branch block, unspecified; I11.0 Hypertensive heart disease with heart failure; I50.41 Acute combined systolic (congestive) and diastolic (congestive) heart failure; E78.5 Hyperlipidemia, unspecified; E13.43 Other specified diabetes mellitus with diabetic autonomic (poly)neuropathy; I87.1 Compression of vein; I87.2 Venous insufficiency (chronic) (peripheral); E66.9 Obesity, unspecified; Z95.1 Presence of aortocoronary bypass graft; Z79.899 Other long term (current) drug therapy; Z79.84 Long term (current) use of oral hypoglycemic drugs; Z79.82 Long term (current) use of aspirin; Z79.890 Hormone replacement therapy; Z82.49 Family history of ischemic heart disease and other diseases of the circulatory system; Z87.898 Personal history of other specified conditions; Z68.35 Body mass index [BMI] 35.0-35.9, adult
CPT/HCPCS: 80048; 85025; 85610; 85730; 36415; 71045; 93005; 93459; 99156; 99157 ×2; 82948 ×2; Q9965; C1769; C1894 ×2; J3010; J3490 ×2; J2250; J1644; Q9967; A4215; A4222; A4221; A4663; A4216; A4606; A4223 ×3; 96360; 96361